=== PATIENT | male | born 1945 | race Caucasian/White ===

== ENCOUNTER → 2017-05-18 | Outpatient (CLI) | payer MEDICARE, BC ==
[~2017-05-18] MED LIST: ASPIRIN 81M81 MG/TA2 PO; LIPITOR 10MG10 MG PO
== END ==
LOC: ZCOL.LAB 12:02
DX: M79.89 Other specified soft tissue disorders (principal)

== ENCOUNTER → 2017-05-18 | Outpatient (CLI) | payer MEDICARE, BC | LOC: COL.VAS 14:13 | DX: S89.92XA Unspecified injury of left lower leg, initial encounter (principal) ==

== ENCOUNTER → 2020-10-18 | Outpatient (CLI) | payer MEDICARE, BC | LOC: COL.VAS 11:57 | DX: I67.89 Other cerebrovascular disease (principal) ==

== ENCOUNTER 2023-03-31 06:41 | Day surgery (SDC) | payer MEDICARE, BC ==
[2023-03-31] VITALS (9 sets, daily range): BP systolic 116–134; BP diastolic 72–80; PULSE 60–72; TEMP 99
[~2023-03-31] VITALS: Ht 180.3 cm; Wt 103.4 kg
[~2023-03-31 06:41] MED LIST changes: -LIPITOR 10MG10 MG PO; +LIPITOR 40MG TA40 MG PO
[2023-03-31] MEDS ORDERED: PRESERVISION1 SGL PO (07:14)
[2023-03-31] MEDS ORDERED: ONE-A-DAY ESSE1 EACH PO (07:15)
[2023-03-31 07:40] LABS: HEMOGLOBIN 12.7 g/dl (13.5-18.0); MEAN CELL VOLUME 94 fl (80.0-100.0); MEAN CORPUSCULAR HEMOGLOBIN 34 pg (27-31); MEAN CORPUSCULAR HGB CONC 36 g/dl (33.0-37.0); MEAN PLATELET VOLUME 8.9 fl (7.4-10.4); PLATELET COUNT 146 K/mm3 (130-400); RED BLOOD COUNT 3.72 M/mm3 (4.20-5.60); REDCELL DISTRIBUTION WIDTH-CV 13.6 % (11.5-14.5)
[2023-03-31 07:43] LABS: HEMATOCRIT 35.1 % (42.0-52.0)
[2023-03-31 07:51] LABS: INR 1.1 (0.8-3.0); PROTHROMBIN TIME 11.6 SECONDS (9.7-12.8)
[2023-03-31 07:53] LABS: PARTIAL THROMBOPLASTIN TIME 28.2 SECONDS (26.0-37.0)
[2023-03-31 08:04] LABS: CREATININE, serum 0.85 mg/dL (0.72-1.25); POTASSIUM 4.4 mmol/L (3.5-4.5)
--- NOTE | 2023-03-31 09:06 | NUR ---
See merge for all medication, assessment, intervention, and vital sign times.
--- NOTE | 2023-03-31 14:08 | NUR ---
Pt ambulated to [facility]10 scheduled for a [facility], accompanied by . IV started, labs drawn. EKG done. Meds and HX reviewed with the pt. Consent form for the [facility] signed. Post procedure pt came back to EU 10. Pt was offered something to eat and drink, pt was brought a water, coffee, and a granola bar. A meal was ordered for the pt later on. Pt was bedrest for 2 hrs during the recovery. At the end of hr 2 alem air was taken out of the radial band 2 ml every 10-15 minutes. Right radial wrist site was clean, dry, and intact during the recovery process. Pt was given discharge education and information, no questions or concerns at time of discharge. Pt exited the unit by wheelchair to wifes car.
== END 2023-03-31 13:20 | disposition home or self-care (01) ==
LOC: COL.CAR 06:41
PROVIDERS: Internal Medicine Cardiovascular Disease
DX: R94.39 Abnormal result of other cardiovascular function study (principal); R07.9 Chest pain, unspecified
CPT/HCPCS: J1644; J2250; J3010; Q9967